=== PATIENT | female | born 1995 | race Caucasian/White ===

== ENCOUNTER → 2018-08-01 | Outpatient (CLI) | payer OTHER ==
--- NOTE | 2018-08-01 21:03 | Diagnostic Imaging Report ---
INDICATION: Right breast pain. FINDINGS: Sonographic interrogation of the area of pain in the right breast was performed, correlating with 12 to 3 o'clock locations. No solid or cystic mass is seen. No sonographic abnormality is identified. IMPRESSION: No sonographic abnormality is detected. ACR BI-RADS Category 1: Negative. Dictated by: Dictated on workstation # [id number]
== END ==
LOC: RAD 11:37
PROVIDERS: ATTEND Family Medicine
DX: N64.4 Mastodynia (principal); R07.89 Other chest pain